=== PATIENT | female | born 1995 ===

== ENCOUNTER 2023-02-27 16:13 | Inpatient (IN) | payer BC ==
[~2023-02-27] VITALS: Ht 170.2 cm; Wt 74.1 kg
[2023-02-27 16:00] VITALS: BP 134/88; PULSE 94; RESP 20; TEMP 98.2; O2SAT 100
[2023-02-27] MEDS ORDERED: HALOPERIDOL 5 MG TABLET PO PRN (17:30)
[2023-02-27 17:46] LABS: GLUCOMETER DEV NAME(LOC) POC.BV; POC SARS-COV2 AG, FIA NEGATIVE (NEGATIVE)
[2023-02-27] MEDS ORDERED: INFLUENZA VIRUS VACCINE QVS 2023-24 (6MO+)/PF 60 MCG/0.5 ML SYRINGE IM. ONE (18:30)
[2023-02-27] MEDS: LORazepam 2 MG TABLET PO PRN (19:28)
[2023-02-28 04:46] VITALS: RESP 18
[2023-02-28 07:45] LABS: BASOPHILS % (AUTO) 0.9 % (0.0-2.0); EOSINOPHILS % (AUTO) 3.7 % (1.0-6.0); HEMATOCRIT 41.8 % (36-46); HEMOGLOBIN 13.9 g/dL (12.0-16.0); LYMPHOCYTES # (AUTO) 2.1 K/uL (1.0-4.8); LYMPHOCYTES % (AUTO) 43.1 % (22.0-44.0); MEAN CORPUSCULAR HEMOGLOBIN 28.9 pg (26.0-34.0); MEAN CORPUSCULAR HGB CONC 33.2 G/dL (31.0-37.0); MEAN CORPUSCULAR VOLUME 87 fL (80-100); MONOCYTES # (AUTO) 0.4 K/uL (0.1-1.0); MONOCYTES % (AUTO) 8.9 % (2.0-9.0); NEUTROPHILS # (AUTO) 2.1 K/uL (1.8-7.7); NEUTROPHILS % (AUTO) 43.4 % (40.0-70.0); PLATELET COUNT (AUTO) 310 K/uL (150-450); RED BLOOD CELL COUNT(AUTO) 4.82 MIL/uL (4.00-5.20); RED CELL DISTRIBUTION WIDTH 13.5 % (11.5-14.5); WHITE BLOOD COUNT (AUTO) 4.9 K/uL (4.5-11.0)
[2023-02-28] MEDS ORDERED: DOCUSATE SODIUM 100 MG CAPSULE PO PRN (07:45)
[2023-02-28] MEDS ORDERED: PETROLATUM,WHITE 28 GM JELLY TP PRN (07:45)
[2023-02-28] MEDS ORDERED: MAGNESIUM HYDROXIDE SUSPENSION 30 ML UDCUP PO PRN (07:45)
[2023-02-28] MEDS ORDERED: IBUPROFEN 400 MG TABLET PO PRN (07:45)
[2023-02-28] MEDS ORDERED: ONDANSETRON HCL 4 MG TABLET PO PRN (07:45)
[2023-02-28] MEDS ORDERED: NICOTINE 14 MG/24 HOUR PATCH TD PRN (07:45)
[2023-02-28] MEDS ORDERED: CloNIDine HCL 0.1 MG TABLET PO PRN (07:45)
[2023-02-28] MEDS ORDERED: ALBUTEROL SULFATE HFA 90 MCG/PUFF 8 GM INHALER IH PRN (07:45)
[2023-02-28] MEDS ORDERED: MAG HYDROX/AL HYDROX/SIMETH ES 30 ML SUSPENSION UDCUP PO PRN (07:45)
[2023-02-28] MEDS ORDERED: ACETAMINOPHEN 325 MG TABLET PO PRN (07:45)
[2023-02-28] MEDS ORDERED: LOPERAMIDE HCL 2 MG CAPSULE PO PRN (07:45)
[2023-02-28] MEDS ORDERED: GuaiFENesin/D-METHORPHAN [SUGAR-FREE] 200-20MG/10 ML SYRUP UDCUP PO PRN (07:45)
[2023-02-28 08:08] LABS: ALANINE AMINOTRANSFERASE 21 U/L (12-78); ALBUMIN 4.3 g/dL (3.4-5.0); ALKALINE PHOSPHATASE 63 U/L (46-116); ANION GAP 8 mmol/L (8-16); ASPARTATE AMINOTRANSFERASE 20 U/L (15-37); BILIRUBIN,TOTAL 0.3 mg/dL (0.1-1.0); CALCIUM, TOTAL 9.5 mg/dL (8.8-10.5); CARBON DIOXIDE 28 mmol/L (22-29); CHLORIDE 103 mmol/L (98-107); FREE T4 (FREE THYROXINE) 1.09 ng/dL (0.76-1.46); GLOMERULAR FILTR. RATE CALC > 60 mL/min (>60); GLUCOSE,RANDOM 95 mg/dL (70-110); HCG,QUANTITATIVE < 1 mIU/mL (0-6); POTASSIUM 4.2 mmol/L (3.5-5.1); SODIUM SERUM 139 mmol/L (136-145); THYROID STIMULATING HORMONE 0.76 uIU/mL (0.36-3.74); TOTAL PROTEIN, SERUM 8.1 g/dL (6.4-8.2); UREA NITROGEN, BLOOD 11 mg/dL (7-18)
[2023-02-28] MEDS: NICOTINE 7 MG/24 HOUR PATCH TD SCH (08:48)
[2023-02-28] MEDS: ESCITALOPRAM OXALATE 10 MG TABLET PO SCH (12:00)
[2023-02-28] MEDS: HydrOXYzine PAMOATE 25 MG CAPSULE PO SCH ×2 (12:00→16:23)
[2023-02-28] MEDS: GABAPENTIN 300 MG CAPSULE PO SCH ×2 (12:11→16:23)
[2023-02-28 22:43] VITALS: BP 121/72; PULSE 86; RESP 16; TEMP 97.6; O2SAT 96
[2023-03-01] MEDS: NICOTINE 7 MG/24 HOUR PATCH TD SCH (08:24)
[2023-03-01] MEDS: ESCITALOPRAM OXALATE 10 MG TABLET PO SCH (08:24)
[2023-03-01] MEDS: GABAPENTIN 300 MG CAPSULE PO SCH ×3 (08:24→17:39)
[2023-03-01] MEDS: LORazepam 2 MG TABLET PO PRN ×2 (08:24→20:48)
[2023-03-01] MEDS: HydrOXYzine PAMOATE 25 MG CAPSULE PO SCH ×2 (08:24→17:39)
[2023-03-01 09:53] VITALS: BP 100/60; PULSE 101; RESP 17; TEMP 97.5; O2SAT 99
[2023-03-01] MEDS: ZOLPIDEM TARTRATE 10 MG TABLET PO PRN (20:47)
[2023-03-02 07:18] VITALS: RESP 18; O2SAT 99
[2023-03-02 08:06] LABS: CHOL/HDL RATIO 2.7 (3.9-5.7); THYROID STIMULATING HORMONE 0.22 uIU/mL (0.36-3.74)
[2023-03-02 09:00] VITALS: BP 120/62; PULSE 87; RESP 18; TEMP 98; O2SAT 99
[2023-03-02] MEDS: NICOTINE 7 MG/24 HOUR PATCH TD SCH (09:07)
[2023-03-02] MEDS: ESCITALOPRAM OXALATE 10 MG TABLET PO SCH (09:07)
[2023-03-02] MEDS: HydrOXYzine PAMOATE 25 MG CAPSULE PO SCH ×2 (09:08→16:13)
[2023-03-02] MEDS: GABAPENTIN 300 MG CAPSULE PO SCH ×3 (09:08→16:13)
[2023-03-02 21:34] VITALS: BP 110/62; PULSE 82; RESP 18; TEMP 97.8
[2023-03-02] MEDS: ZOLPIDEM TARTRATE 10 MG TABLET PO PRN (21:44)
[2023-03-02] MEDS: LORazepam 2 MG TABLET PO PRN (21:45)
[2023-03-03] MEDS: HydrOXYzine PAMOATE 25 MG CAPSULE PO SCH ×2 (09:49→16:52)
[2023-03-03] MEDS: GABAPENTIN 300 MG CAPSULE PO SCH ×3 (09:49→16:52)
[2023-03-03] MEDS: ESCITALOPRAM OXALATE 10 MG TABLET PO SCH (09:49)
[2023-03-03] MEDS: NICOTINE 7 MG/24 HOUR PATCH TD SCH (09:50)
[2023-03-03 10:17] VITALS: BP 117/75; PULSE 90; RESP 18; TEMP 98.6; O2SAT 96
[2023-03-03] MEDS: LORazepam 2 MG TABLET PO PRN (10:44)
[2023-03-03] MEDS ORDERED: HYDR-4808 PO (17:14)
[2023-03-03] MEDS ORDERED: ESCI-8 PO (17:15)
[2023-03-03] MEDS ORDERED: GABA-1181 PO (17:40)
[2023-03-03 20:05] VITALS: BP 106/60; PULSE 71; RESP 17; TEMP 98.2; O2SAT 96
[2023-03-03] MEDS: ZOLPIDEM TARTRATE 10 MG TABLET PO PRN (23:02)
[2023-03-04] MEDS: LORazepam 2 MG TABLET PO PRN (06:03)
[2023-03-04 08:37] VITALS: BP 116/70; PULSE 79; RESP 16; TEMP 98; O2SAT 97
[2023-03-04] MEDS: HydrOXYzine PAMOATE 25 MG CAPSULE PO SCH (08:37)
[2023-03-04] MEDS: GABAPENTIN 300 MG CAPSULE PO SCH (08:37)
[2023-03-04] MEDS: ESCITALOPRAM OXALATE 10 MG TABLET PO SCH (08:37)
[2023-03-04] MEDS: NICOTINE 7 MG/24 HOUR PATCH TD SCH (08:38)
== END 2023-03-04 09:30 | disposition home or self-care (01) | DRG 885 ==
LOC: B3A 16:30
PROVIDERS: ADMIT Psychiatry & Neurology Child & Adolescent Psychiatry; ATTEND Psychiatry & Neurology Child & Adolescent Psychiatry
DX: F29 Unspecified psychosis not due to a substance or known physiological condition (principal); G92.9 Unspecified toxic encephalopathy; R45.851 Suicidal ideations; R00.0 Tachycardia, unspecified; Z20.822 Contact with and (suspected) exposure to COVID-19
CPT/HCPCS: 80053; 80061; 84439; 84443; 84702; 85025; 86592; 90686